=== PATIENT | male | born 1940 | race Caucasian/White ===

== ENCOUNTER 2018-10-06 07:30 | Observation (INO) ==
--- NOTE | 2018-10-06 08:55 | Diag Imaging Result Doc PS360 ---
EXAM: CHEST-PORTABLE HISTORY: fall TECHNIQUE: Portable chest single view COMPARISON: 09/15/2018 FINDINGS: Poor inspiratory effort. No pneumothorax. No lung contusion. The left hemidiaphragm is elevated. No cardiomegaly. No consolidation. Questionable tiny effusions. No change in the left-sided portacatheter. Old injury to the right clavicle. IMPRESSION: No injury identified. Electronically signed by Raffy Perez 10/06/2018 8:53 AM
--- NOTE | 2018-10-06 08:57 | Diag Imaging Result Doc PS360 ---
EXAM: HIP 1 VIEW RIGHT 10/06/2018 HISTORY: fall TECHNIQUE: Right hip one view COMMENT: The joint spaces well-preserved. There is no evidence of fracture dislocation or periosteal reaction. IMPRESSION: No evidence of acute bony disease. Electronically signed by Femi Crane 10/06/2018 8:54 AM
[2018-10-06] MEDS ORDERED: MORPHINE IV SCH (09:00)
[2018-10-06] MEDS: DILAUDID IV SCH ×6 (09:18→17:26)
[2018-10-06] MEDS: D5 1/2 NS 1,000 ML IV SCH (09:20)
--- NOTE | 2018-10-06 09:40 | Diag Imaging Result Doc PS360 ---
EXAM: XRAY PELVIS W/HIP 2-3VW RT HISTORY: fall with R hip pain TECHNIQUE: Pelvis and right hip, three views COMPARISON: None. FINDINGS: No fracture. No dislocation. No significant joint space narrowing. There are sutures, surgical clips, and coils overlying the pelvis. Severe degenerative changes in the lower lumbar spine. No widening of the pubic symphysis. IMPRESSION: No acute bony injury. Electronically signed by Raffy Perez 10/06/2018 9:38 AM
[2018-10-06 09:44] LABS: BASO# 0.04 X1000 (0.0-0.2); BASO% 0.5 % (0.0-0.8); EOS# 0.24 X1000 (0.0-0.7); HEMOGLOBIN 12.4 g/dL (14.0-18.0); IMM GRAN# 0.08 X1000 (0.0-0.04); LYMPH# 1.48 X1000 (1.2-3.4); LYMPH% 18.7 % (20.5-51.1); MCHC 31.8 g/dL (33-37); MCV 100.5 FL (81-99); MONO# 0.58 X1000 (0.11-0.59); MONO% 7.3 % (1.7-9.3); MPV 10.9 FL (7.4-10.4); NEUT% 69.5 % (42.2-75.2); PLT 139 X1000 (130-400); RBC 3.88 XMIL (4.7-6.1); WBC 7.92 X1000 (4.8-10.8)
[2018-10-06 09:47] LABS: INR 1.88
[2018-10-06 09:48] LABS: PTT 37.1 Seconds (22.3-41.8)
[2018-10-06 10:01] LABS: ALB/GLOB RATIO 1.3; ALBUMIN 3.4 g/dL (3.5-5.0); CALCIUM 9.2 mg/dL (8.8-10.2); CREATININE 1.5 mg/dL (0.7-1.2); POTASSIUM 3.8 mmol/L (3.5-5.1); TOTAL BILIRUBIN 0.75 mg/dL (0.20-1.00); TOTAL PROTEIN 6.1 g/dL (6.3-8.3)
--- NOTE | 2018-10-06 11:34 | EKG Report ---
Test Performed on : 10/06/2018 09:08:53 AM Test Reason : fall Blood Pressure : / mmHG Vent. Rate : 061 BPM Atrial Rate : 061 BPM P-R Int : 150 ms QRS Dur : 080 ms QT Int : 440 ms P-R-T Axes : 104 034 030 degrees QTc Int : 442 ms Sinus rhythm. with occasional premature ventricular complexes. and premature atrial complexes. Otherwise normal ECG When compared with ECG of 12-FEB-2018 14:01, premature ventricular complexes. are now present premature atrial complexes. are now present T wave inversion no longer evident in Inferior leads T wave inversion no longer evident in Anterolateral leads QT has lengthened Unconfirmed Result
--- NOTE | 2018-10-06 16:10 | Diag Imaging Result Doc PS360 ---
EXAM: CT PELVIS W/O CONTRAST 10/06/2018 HISTORY: Fall, right hip pain, rule out hematoma TECHNIQUE: This exam was performed using automated exposure control, adjustment of mA or kV according to patient size, and/or use of iterative reconstruction technique. COMMENT: There are fairly severe degenerative disc and facet changes at the L3-4 L4-5 and L5-S1 levels. There is scoliosis with convexity to the left. 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 These findings were also present on 10/27/2017. There is a anastomosis in the distal sigmoid colon. There is an apparent associated fecalith. There is some degenerative change in the symphysis pubis. There is no evidence of fracture or dislocation. There is minimal stranding in the subcutaneous fat over both hips. No significant fluid collection is demonstrated. IMPRESSION: No evidence of acute bony abnormality or hematoma. Electronically signed by Femi Crane 10/06/2018 4:08 PM
--- NOTE | 2018-10-06 16:38 | CARDIOLOGY CONSULTATION ---
DATE: 10/06/2018 HISTORY OF PRESENT ILLNESS: Cardiology was consulted. The patient fell at home. Has extensive cardiac history. An 78-year-old, gentleman, was at [employer] when he tripped and fell and after that he could not walk. He came to the emergency room. X-ray of his hip was unremarkable. He has been on anticoagulation therapy. The concern is whether there is any soft tissue bleeding as well. He did not have any palpitations. He was recently seen in our office. Otherwise symptoms had not changed. There is no dizziness. There is no syncope. Denies chest pain. REVIEW OF SYSTEM: GI: There is no history of nausea, vomiting, diarrhea. There is no history of hematemesis or melena. Central nervous system: No focal weakness to suggest a CVA, TIA. Genitourinary: There is no dysuria or hematuria. PAST MEDICAL HISTORY: 1. PTCA in 11/2010. The patient has had multiple cardiac catheterizations. Last cardiac catheterization in 2012, left main irregular, LAD mild disease diagonal proximal 95% stenosis treated with balloon angioplasty, circumflex 30%-40%, OM1 30%to 40%, OM1 100%, RCA occluded at ostium. 2. 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 3. He underwent ablation on 08/14/2011 of all 4 pulmonary veins and had cardioversions before that as well. 4. Anticoagulation therapy. 5. Pulmonary disease. 6. Hypertension. 7. Hyperlipidemia. 8. Melanoma. 9. History of DVT. 10. Erectile dysfunction. HOME MEDICATIONS: 1. Allopurinol 100 mg a day. 2. Nabumetone. 3. Protonix 40. 4. Potassium supplements. 5. Prednisone 10. 6. Xarelto 15. 7. Isosorbide dinitrate 30. 8. Sotalol 120 b.i.d. 11. Lasix 20. ALLERGIES: 1. Ritalin. 2. Aleve. 3. Lortab. PHYSICAL EXAMINATION: Vital Signs: Blood pressure was 134/74. Cardiovascular: Normal jugular venous pressure. First and second heart sounds were heard. There was no S3 gallop. Respiratory: Normal air entry. There is no crepitations or rhonchi. Abdomen: Soft, nontender. There was no guarding or rigidity. Bowel sounds were heard. Central nervous system: Alert and oriented, was moving all 4 extremities. Extremities: Examination of his hip did not reveal any obvious large hematoma. LABORATORY DATA: WBC 7.92, hemoglobin 12.4, hematocrit 39, platelet count of 139,000. Chemistry: Sodium 144, potassium 3.8, BUN 25, creatinine 1.5. X-rays of his hip and pelvis revealed no bony injury. Chest x-ray revealed no major abnormality, poor inspiratory effort. ASSESSMENT AND PLAN: 1. Mr. Ignacio Fontenot is an 78-year-old gentleman who fell and sustained an injury to his hip, right side. There was no bony injury noted on chest x-ray. However he is anticoagulated. Given this, we will get a CT scan without contrast to make sure there is no hematoma in the soft tissue area. 2. He has history of coronary artery disease, angioplasty in the past. 3. Atrial fibrillation with ablation in 2012. He also has history of deep venous thrombosis. He is on sotalol and Xarelto. His EKG revealed normal sinus rhythm. There was no atrial fibrillation. Occasional atrial contraction beats were noted. RECOMMENDATIONS: 1. Will continue all of his medications if there is no soft tissue injury. He has had history of deep venous thrombosis. We will continue with the Xarelto as well. 2. History of atrial fibrillation, currently in sinus rhythm. Has undergone ablation. We will continue with his sotalol. I have not made any other changes to his medications. Thank for the consult. cc: MD Ceasar Guevara MD MTDD
[2018-10-06 17:09] LABS: URINE SOURCE CLEAN CATCH
[2018-10-06 17:12] LABS: BILIRUBIN URINE NEGATIVE (NEGATIVE); BLOOD URINE NEGATIVE (NEGATIVE); COLOR YELLOW; GLUCOSE URINE NEGATIVE (NEGATIVE); KETONE URINE NEGATIVE (NEGATIVE); LEUKOCYTES URINE NEGATIVE (NEGATIVE); NITRITE URINE NEGATIVE (NEGATIVE); PH URINE 6.5; PROTEIN URINE NEGATIVE (NEGATIVE); SP GRAVITY URINE 1.003; TURBIDITY URINE CLEAR (CLEAR); UR EPITHELIAL CELLS <10 /HPF (<10); URINE BACTERIA NEGATIVE /HPF; URINE RBC <10 /HPF (<10); URINE WBC <10 /HPF (<10); UROBILINOGEN URINE NORMAL (NORMAL)
[2018-10-06] MEDS: MILK OF MAGNESIA PO SCH (17:15)
[2018-10-06] MEDS: BETAPACE PO SCH (19:43)
[2018-10-06] MEDS: RESTORIL PO SCH (19:43)
[2018-10-06] MEDS: FLOMAX PO SCH (19:44)
[2018-10-06] MEDS: PATIENT'S OWN MED PO SCH (19:44)
[2018-10-06] MEDS ORDERED: HALCION PO SCH (21:00)
[2018-10-07] MEDS: BETAPACE PO SCH ×3 (03:30→21:57)
[2018-10-07] MEDS: FLOMAX PO SCH ×2 (03:30→21:58)
[2018-10-07] MEDS: PATIENT'S OWN MED PO SCH ×3 (03:30→22:00)
[2018-10-07] MEDS: RESTORIL PO SCH ×2 (03:31→21:58)
[2018-10-07] MEDS: PROTONIX PO SCH (06:17)
[2018-10-07] MEDS: D5 1/2 NS 1,000 ML IV SCH (06:18)
[2018-10-07 07:17] LABS: CALCIUM 8.5 mg/dL (8.8-10.2); CREATININE 1.4 mg/dL (0.7-1.2); MAGNESIUM 2.4 mg/dL (1.5-2.7); POTASSIUM 3.7 mmol/L (3.5-5.1)
[2018-10-07] MEDS ORDERED: PATIENT'S OWN MED PO SCH ×2 (09:00→21:00)
[2018-10-07] MEDS ORDERED: XARELTO PO SCH (09:00)
[2018-10-07] MEDS: MILK OF MAGNESIA PO SCH (09:40)
[2018-10-07] MEDS: DILAUDID IV PRN ×3 (09:40→22:17)
[2018-10-07] MEDS: RELAFEN PO SCH ×2 (09:41→21:57)
[2018-10-07] MEDS: IMDUR PO SCH (09:42)
[2018-10-07] MEDS: ZYLOPRIM PO SCH (09:42)
[2018-10-07] MEDS: VITAMIN B-12 SL SCH (09:42)
[2018-10-07] MEDS: KLOR-CON PO SCH (09:42)
[2018-10-07] MEDS: PREDNISONE PO SCH (09:43)
[2018-10-07] MEDS: LASIX PO SCH (09:44)
[2018-10-07] MEDS ORDERED: CITRATE OF MAGNESIA PO ONE (16:01)
[2018-10-08] MEDS: DILAUDID IV PRN (04:09)
[2018-10-08] MEDS: PROTONIX PO SCH (06:22)
[2018-10-08 07:32] VITALS: BP 135/75
[2018-10-08] MEDS: IMDUR PO SCH (09:04)
[2018-10-08] MEDS: VITAMIN B-12 SL SCH ×2 (09:04→09:13)
[2018-10-08] MEDS: LASIX PO SCH (09:05)
[2018-10-08] MEDS: RELAFEN PO SCH (09:05)
[2018-10-08] MEDS: KLOR-CON PO SCH (09:07)
[2018-10-08] MEDS: BETAPACE PO SCH (09:07)
[2018-10-08] MEDS: PREDNISONE PO SCH (09:08)
[2018-10-08] MEDS: ZYLOPRIM PO SCH (09:08)
[2018-10-08] MEDS: PATIENT'S OWN MED PO SCH (09:09)
--- NOTE | 2018-10-08 11:00 | CONSULTATION ---
DATE OF CONSULTATION: 10/08/2018 CHIEF COMPLAINT: Right hip pain. HISTORY OF PRESENT ILLNESS: Ignacio Fontenot is an 78-year-old male who underwent a fall this weekend while he was [place]. He missed a step coming out that he had forgotten was there and fell landing on his right hip and knee. Since that time, he has had pain with any weightbearing of his hip. He was admitted to the hospital and workup was subsequently negative. I was asked to see him in orthopedic consultation. PAST MEDICAL HISTORY: Includes significant cardiac history including catheterizations. He is on anticoagulation. He has pulmonary disease, hypertension, and high cholesterol. He has had a history of melanoma cancer treated currently with chemotherapy. History of DVT and erectile dysfunction. MEDICATIONS: His home medications include allopurinol, nabumetone, Protonix, potassium, prednisone, Xarelto, isosorbide dinitrate, sotalol and Lasix. ALLERGIES: Include Ritalin, Aleve and Lortab. REVIEW OF SYSTEMS: All systems were reviewed. He denies any complaints other than his hip pain. All other systems were negative and normal. PHYSICAL EXAMINATION: A well-developed and well-nourished male. He is cooperative with exam. He has no pain when sitting or with range of motion of his hip really, but he does have some pain with internal rotation of his hip, and most of his pain is just with weightbearing. He also has pain with resisted flexion of his hip. His leg is otherwise neurovascularly intact. He does have some bruising over his greater trochanter that is mild, but he is not really tender there. IMAGING: X-rays and CT of his pelvis show no abnormality. He does have some degenerative disk disease in his lumbar spine. ASSESSMENT: Right hip pain with inability to ambulate. PLAN: His symptoms are certainly more pronounced than his studies would suggest. He certainly seems reasonable and astute. He is definitely having pain and inability to ambulate or stand. I am concerned that he could have an occult fracture that we are just not seeing on x-ray. It is certainly possible that this is just a muscle strain of his iliopsoas, and should get better on its own, but to be certain I would not want to send him home with impending stress fracture of his hip. Therefore, we are going to get an MRI of his hip prior to allowing him to be discharged. I have discussed this with him and his , and they are certainly agreeable. cc: MD Ceasar Gardner MD [facility]
--- NOTE | 2018-10-08 12:12 | Diag Imaging Result Doc PS360 ---
EXAM: MRI LOWER EXT JT W/O CON-RIGHT INDICATION: Right Hip Pain and inability to ambulate TECHNIQUE: COMPARISON: CT of the pelvis dated 10/06/2018. No prior MRI of the hip is available for comparison. FINDINGS: There is a low signal linear cortical defect at the superior aspect of the femoral neck and there is surrounding increased signal on fluid sensitive sequences indicating edema. This is consistent with a small nondisplaced fracture of the femoral neck. It does not traverse the entire craniocaudal with of the femoral neck. Edema as seen extending into the intertrochanteric region. However, there is no obvious extension of the actual fracture into the intertrochanteric hip. Note that this fracture is largely occult on the recent pelvic CT. In retrospect, it was probably present as an extremely subtle cortical defect that can be seen on the coronal reformatted images on the previous CT (image 67, series 602). Otherwise, there is a superior labral tear and there is chondromalacia with a small subchondral cyst at the acetabular roof. These findings are likely chronic. The tendinous and ligamentous structures of the hip appear to be intact. There is subcutaneous soft tissue edema around the right hip. IMPRESSION: 1.Acute nondisplaced fracture involving the right femoral neck. Please see the above discussion. 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 Electronically signed by Jaun Pang 10/08/2018 12:10 PM
== END 2018-10-08 12:03 | disposition home or self-care (01) ==
LOC: EDIPHOLD 07:30 → ED 07:30 → 4N 13:19
PROVIDERS: ADMIT Surgery; ATTEND Surgery
CPT/HCPCS: 71010; 71045; 72192; 73500; 73501; 73502; 73721; 80048; 80053; 81001; 83735; 85025; 85610; 85730; 93005; 96365; 96366; 96375; 99285; A9270; J1170; J7506; J7512

== ENCOUNTER 2018-10-08 13:14 | Inpatient (IN) ==
[2018-10-08] MEDS ORDERED: D5 1/2 NS 1,000 ML IV SCH (15:30)
[2018-10-08 16:25] LABS: BASO# 0.02 X1000 (0.0-0.2); BASO% 0.3 % (0.0-0.8); EOS# 0.11 X1000 (0.0-0.7); EOS% 1.5 % (0.0-10.0); HEMATOCRIT 37.8 % (42.0-52.0); HEMOGLOBIN 11.9 g/dL (14.0-18.0); IMM GRAN# 0.07 X1000 (0.0-0.04); LYMPH# 1.27 X1000 (1.2-3.4); LYMPH% 17.5 % (20.5-51.1); MCH 32.1 PG (27-31); MCHC 31.5 g/dL (33-37); MCV 101.9 FL (81-99); MONO# 0.32 X1000 (0.11-0.59); MONO% 4.4 % (1.7-9.3); MPV 10.5 FL (7.4-10.4); NEUT# 5.47 X1000 (1.4-6.5); NEUT% 75.3 % (42.2-75.2); PLT 132 X1000 (130-400); RBC 3.71 XMIL (4.7-6.1); WBC 7.26 X1000 (4.8-10.8)
[2018-10-08] MEDS ORDERED: KEFZOL 1 GM/D5W 1 GM/50 ML IVPB IV ONE (17:04)
[2018-10-08 17:09] LABS: INR 0.97; PROTIME 13.7 Seconds (11.0-16.0)
[2018-10-08 17:10] LABS: PTT 25.5 Seconds (22.3-41.8)
[2018-10-08 17:11] LABS: ALB/GLOB RATIO 1.2; ALBUMIN 3.4 g/dL (3.5-5.0); CALCIUM 8.4 mg/dL (8.8-10.2); CREATININE 1.5 mg/dL (0.7-1.2); TOTAL BILIRUBIN 0.57 mg/dL (0.20-1.00); TOTAL PROTEIN 6.3 g/dL (6.3-8.3)
--- NOTE | 2018-10-08 17:45 | HISTORY AND PHYSICAL ---
CHIEF COMPLAINT: Right hip pain. HISTORY OF PRESENT ILLNESS: Mr. Fontenot is an 78-year-old male who is complaining of right hip pain after falling this weekend. He was admitted to the hospital where multiple imaging was done including a CT of his abdomen and pelvis. It was not until a lower extremity MRI revealed a nondisplaced fracture of the right femoral neck, he was discharged and then readmitted for further evaluation and treatment. PAST MEDICAL HISTORY: 1. Hypertension. 2. Hyperlipidemia. 3. Melanoma. 4. History of DVT. 5. Erectile dysfunction. 6. Pulmonary disease. 7. Atrial fibrillation. MEDICATIONS: See the medication list. ALLERGIES: Ritalin, Aleve, and Lortab. REVIEW OF SYSTEMS: Positive for right hip pain. All others negative. PHYSICAL EXAMINATION: GENERAL: This is a well-developed, well-nourished male. He is alert, oriented, and cooperative with the examination. He is in no acute distress. VITAL SIGNS: Stable. He is afebrile. HEENT: Head is normocephalic, atraumatic. NECK: Supple. RESPIRATORY: His breathing is nonlabored. ABDOMEN: Nondistended. NEUROLOGIC: Sensation of his right lower extremity is intact. MUSCULOSKELETAL: He has pain with range of motion of his right hip. IMAGING: An MRI of his right hip reveals a right femoral neck fracture. ASSESSMENT: Right hip femoral neck fracture. PLAN: Right intertrochanteric fixation nail placement. We will keep him NPO at midnight to proceed with a right trochanteric fixation nail placement tomorrow with Dr. Blevins. We will continue to hold his Xarelto. His last dose was [address] Blevins discussed with the patient the risks and benefits of surgery including risk of anesthesia, , bleeding, infection, damage to tendons, nerves, ligaments, and other imponderables were discussed with the patient and the patient wishes to proceed with operative management at this time. Dictated by SHANNAN Hamlin for Gordon Blevins MD cc: SHANNAN Hamlin MD
--- NOTE | 2018-10-08 18:28 | Diag Imaging Result Doc PS360 ---
EXAM: KNEE 3 VIEWS RIGHT INDICATION: Right knee pain TECHNIQUE: 3 views COMPARISON: None. FINDINGS: There is tricompartmental mild to moderate degenerative arthropathy with small marginal osteophytes. There is loss of joint height at the medial compartment. There is no discrete fracture, dislocation, or significant intrinsic osseous lesion, otherwise. There is soft tissue edema around the knee and lower leg. IMPRESSION: Soft tissue edema and degenerative changes. No evidence of acute osseous abnormality. Electronically signed by Jaun Pang 10/08/2018 6:26 PM
[2018-10-08] MEDS: RELAFEN PO SCH (20:39)
[2018-10-08] MEDS: PATIENT'S OWN MED PO SCH (20:40)
[2018-10-08] MEDS: BETAPACE PO SCH (20:40)
[2018-10-09] MEDS: BETAPACE PO SCH ×3 (06:23→20:47)
[2018-10-09] MEDS: KLOR-CON PO SCH ×2 (06:24→17:18)
--- NOTE | 2018-10-09 08:14 | PROGRESS NOTE ---
DATE: 10/09/2018 SUBJECTIVE: Ignacio Fontenot is an 78-year-old male with a right femoral neck fracture, nondisplaced after a fall. He has no new complaints. OBJECTIVE: He is a well-developed, well-nourished male. He is alert, oriented, and cooperative with exam. His vital signs are stable. He is afebrile. His leg is neurovascularly intact. IMAGING: X-rays of his knee show arthritis and swelling, but no acute bony abnormality. ASSESSMENT: Right hip femoral neck fracture. PLAN: We will plan on performing a trochanteric fixation nail placement today. I have discussed this with him at length yesterday. I have answered any questions he has again today. We will plan on proceeding with that surgery today at noon. cc: Gordon Blevins MD
[2018-10-09] MEDS ORDERED: KEFZOL 2 GM/D5W 2 GM/50 ML IVPB ONE (11:10)
[2018-10-09] MEDS ORDERED: DIPRIVAN 1% ONE (11:46)
[2018-10-09] MEDS ORDERED: XYLOCAINE-MPF 2% ONE (11:47)
[2018-10-09] MEDS ORDERED: EPHEDRINE ONE (12:34)
[2018-10-09] MEDS ORDERED: ROBINUL ONE (12:34)
[2018-10-09] MEDS ORDERED: NEO-SYNEPHRINE ONE (12:34)
[2018-10-09] MEDS ORDERED: ZOFRAN ONE (12:41)
[2018-10-09] MEDS ORDERED: OFIRMEV 1000 MG/ISOTONIC SOLN 1,000 MG/100 ML BOTTLE ONE (12:41)
[2018-10-09] MEDS ORDERED: DECADRON ONE (12:41)
[2018-10-09] MEDS ORDERED: FENTANYL ONE (12:47)
[2018-10-09 13:11] LABS: URINE SOURCE CATH
[2018-10-09 13:19] LABS: BILIRUBIN URINE NEGATIVE (NEGATIVE); BLOOD URINE SMALL (NEGATIVE); COLOR YELLOW; GLUCOSE URINE NEGATIVE (NEGATIVE); KETONE URINE NEGATIVE (NEGATIVE); LEUKOCYTES URINE NEGATIVE (NEGATIVE); NITRITE URINE NEGATIVE (NEGATIVE); PROTEIN URINE NEGATIVE (NEGATIVE); SP GRAVITY URINE 1.007; TURBIDITY URINE HAZY (CLEAR); UR EPITHELIAL CELLS <10 /HPF (<10); URINE BACTERIA NEGATIVE /HPF; URINE WBC <10 /HPF (<10); UROBILINOGEN URINE NORMAL (NORMAL)
[2018-10-09] MEDS ORDERED: PERCOCET-5 ONE (13:44)
[2018-10-09] MEDS ORDERED: ZOFRAN IV PRN (14:06)
[2018-10-09] MEDS ORDERED: HALDOL IV PRN (14:06)
[2018-10-09] MEDS ORDERED: OXY IR PO PRN (14:06)
[2018-10-09] MEDS: DILAUDID IV PRN (14:13)
--- NOTE | 2018-10-09 14:13 | PROGRESS NOTE ---
DATE: 10/09/2018 SUBJECTIVE: The patient was readmitted to the hospital yesterday when an occult hip fracture was found via MRI yesterday. He was admitted by Dr. Blevins. I was consulted for medical management. I saw the patient preoperatively today. He was in good spirits and completely lucid. He had no complaints and no need expressed OBJECTIVE: Vital signs: 97.9 degrees, pulse rate 55, respiratory rate 24, blood pressure 172/67. On physical exam, the patient is alert, oriented, conversive and appropriate. Lungs are clear. ASSESSMENT AND PLAN: The patient is scheduled for orthopedic procedure to stabilize his fracture today. The patient is unsure whether he will want to go to rehabilitation or to go home. I will leave that discussion more to Dr. Blevins whether he thinks the patient will be able to return home or not. In regard to the patient's medications, we will try and reinstitute his home medications as quickly as possible. I have held a few this morning, including Lasix and Relafen, since he is going to surgery, but we will reinstitute those tomorrow. We will continue to monitor hydration and blood counts and make adjustments as necessary. cc: MD Gordon Silverman MD
--- NOTE | 2018-10-09 14:57 | OPERATIVE NOTE ---
PROCEDURE DATE: 10/09/2018 PREOPERATIVE DIAGNOSIS: Right basicervical femoral neck fracture. POSTOPERATIVE DIAGNOSIS: Right basicervical femoral neck fracture. PROCEDURE PERFORMED: Right long trochanteric fixation nail placement. ANESTHESIA: General. SURGEON: Gordon Blevins MD. TRANSMISSION MAINTENANCE SUPERVISOR: Leisa Fisher PA-C. COMPLICATIONS: None. BLOOD LOSS: Minimal. DESCRIPTION OF PROCEDURE: The patient was brought to the operative suite and placed in supine position. After successful administration of general anesthesia, the patient placed on the OSI table in the usual position for a right hip. The right hip was then prepped and draped in usual sterile fashion as well as the leg down to past the knee. A longitudinal incision was made proximal to the tip of the greater trochanter. Dissected sharply through the skin. A guide pin was placed in the center of the femoral canal on AP and lateral images. It was reamed to 13 mm after placing the ball-tipped guidewire and then measured to 420 mm. A 420 mm nail was then driven into place and through a stab incision laterally using the proximal guide, a guide pin was placed in the center of the femoral neck and head, and then was measured to 95 mm. It was reamed and driven into place and then locked up proximally and then released to allow for compression and the proximal guide was removed as well as the guide pin, and traction was released. All the reamings were sent to pathology for analysis since the patient is a cancer patient. Using the perfect circles technique through stab incisions, the distal locking screws were drilled and measured at 48 and 52 mm and then driven into place. Excellent placement of the hardware and reduction of the fracture was obtained on AP and lateral images. The wounds were copiously irrigated. Skin edge were approximated with 2-0 Vicryl. Skin was closed with skin jaime and a sterile dressing was applied. The patient tolerated the procedure well without complications. At the end of the procedure, all counts correct x2. The patient was transferred to the recovery room in stable condition. cc: Gordon Blevins MD [facility]
[2018-10-09] MEDS: NS 1,000 ML IV SCH (16:12)
[2018-10-09] MEDS: ISORDIL PO SCH (17:17)
[2018-10-09] MEDS: PREDNISONE PO SCH (17:18)
[2018-10-09] MEDS: ZYLOPRIM PO SCH (17:19)
[2018-10-09] MEDS: VITAMIN B-12 SL SCH (17:19)
[2018-10-09] MEDS: PATIENT'S OWN MED PO SCH ×3 (17:20→20:48)
[2018-10-09] MEDS: TYLENOL PO SCH (20:47)
[2018-10-09] MEDS: COLACE PO SCH (20:47)
[2018-10-10] MEDS: TYLENOL PO SCH ×5 (00:17→23:41)
[2018-10-10] MEDS: PROTONIX PO SCH ×2 (06:32→06:33)
[2018-10-10 06:46] LABS: HEMATOCRIT 31.5 % (42.0-52.0); HEMOGLOBIN 9.7 g/dL (14.0-18.0)
[2018-10-10 06:55] LABS: CALCIUM 8.1 mg/dL (8.8-10.2); CREATININE 1.2 mg/dL (0.7-1.2); POTASSIUM 4.4 mmol/L (3.5-5.1)
[2018-10-10] MEDS: KLOR-CON PO SCH (09:47)
[2018-10-10] MEDS: RELAFEN PO SCH ×2 (09:47→20:12)
[2018-10-10] MEDS: BETAPACE PO SCH ×2 (09:49→20:14)
[2018-10-10] MEDS: ZYLOPRIM PO SCH (09:49)
[2018-10-10] MEDS: ISORDIL PO SCH (09:51)
[2018-10-10] MEDS: FERROUS SULFATE PO SCH (09:51)
[2018-10-10] MEDS: LASIX PO SCH (09:51)
[2018-10-10] MEDS: PREDNISONE PO SCH (09:52)
[2018-10-10] MEDS: XARELTO PO SCH (09:52)
[2018-10-10] MEDS: VITAMIN B-12 SL SCH (10:00)
[2018-10-10] MEDS: PATIENT'S OWN MED PO SCH ×3 (10:20→20:29)
--- NOTE | 2018-10-10 11:16 | PROGRESS NOTE ---
DATE: 10/10/2018 SUBJECTIVE: The patient states that he is struggling because he is comfortable when in a semi recumbent position and motionless, but as soon as he tries to move, he says the pain is pretty bad. Despite this, he does not want to utilize very much in the way of pain medication. Physical therapy was about to try and get him moving as we spoke this morning. He is in good spirits. He still has a Gutierrez catheter in. OBJECTIVE: Vital Signs: 97.9, 63, 24, 124/64, 97% saturated on room air. General: The patient is alert, oriented, conversive and appropriate. Lungs: Clear. Cardiovascular: Regular. LABORATORY: Hemoglobin is 9.7, down from 11.9. Serum electrolytes are normal. ASSESSMENT AND PLAN: 1. The patient had a long trochanteric fixation nail placement per Dr. Blevins. He is in a bit of pain, but is eager to work with physical therapy and try to regain his feet. He still has a Gutierrez catheter in. 2. The patient is slightly to moderately anemic postoperatively. We will have to continue to watch this. He is on blood thinner. We will transfuse as appropriate, but he is pretty far outside of that range at the present time. 3. The patient's cardiovascular concerns are stable at present. He is still on his sotalol. He is to restart Lasix today. cc: MD Gordon Silverman MD
[2018-10-10] MEDS: DILAUDID IV PRN (11:46)
[2018-10-10] MEDS: MILK OF MAGNESIA PO PRN ×2 (12:07→12:11)
[2018-10-10] MEDS: NS 1,000 ML IV SCH ×2 (12:48→17:32)
--- NOTE | 2018-10-10 17:25 | PROGRESS NOTE ---
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 He complains of continued pain in his leg with ambulation, but otherwise is doing well. OBJECTIVE: General: He is a well-developed, well-nourished male. He is alert, oriented, and cooperative exam. His dressings are clean, dry, intact. There is some mild bloody drainage from the most superior wound. His hemoglobin is 9.7. His hematocrit is 31.5. Vital signs: Stable. He is afebrile. Lower extremity: His leg is neurovascularly intact. His calf is soft. There is no sign of infection or deep venous thrombosis. ASSESSMENT: Stable postoperative day 1 visit from a right trochanteric fixation nail placement. PLAN: We will continue working with physical therapy. He was able to walk 50 feet today. He will likely go to rehab on Saturday. We will change his dressing tomorrow. cc: Gordon Blevins MD
[2018-10-10] MEDS: COLACE PO SCH (20:13)
[2018-10-10] MEDS: AMBIEN PO PRN (20:24)
[2018-10-11] MEDS: PROTONIX PO SCH ×2 (05:37→06:09)
[2018-10-11] MEDS: TYLENOL PO SCH ×3 (05:44→23:44)
[2018-10-11] MEDS: BETAPACE PO SCH ×2 (05:47→20:53)
[2018-10-11] MEDS: NS 1,000 ML IV SCH (05:48)
[2018-10-11] MEDS: PATIENT'S OWN MED PO SCH ×3 (05:48→20:54)
[2018-10-11 06:41] LABS: HEMATOCRIT 28.7 % (42.0-52.0)
[2018-10-11] MEDS: VITAMIN B-12 SL SCH (08:50)
[2018-10-11] MEDS: RELAFEN PO SCH ×2 (08:51→20:54)
[2018-10-11] MEDS: FERROUS SULFATE PO SCH (08:52)
[2018-10-11] MEDS: XARELTO PO SCH (08:52)
[2018-10-11] MEDS: ZYLOPRIM PO SCH (08:52)
[2018-10-11] MEDS: PREDNISONE PO SCH (08:57)
[2018-10-11] MEDS: LASIX PO SCH (08:58)
[2018-10-11] MEDS: KLOR-CON PO SCH (08:58)
[2018-10-11] MEDS: ISORDIL PO SCH (08:59)
--- NOTE | 2018-10-11 10:31 | PROGRESS NOTE ---
DATE: 10/11/2018 SUBJECTIVE: Ignacio Fontenot is an 78-year-old male, postop day 2 from a right TFN for his nondisplaced femoral neck basicervical fracture. He has no complaints. He does state, however, that his leg continues to hurt him if he bears any weight. OBJECTIVE: He is a well developed, well nourished male. He is alert and cooperative with exam. His vital signs are stable. He is afebrile. His hemoglobin is 9 and his hematocrit is 28.7. He walked about 50 feet yesterday with therapy. ASSESSMENT: Stable right trochanteric fixation nail.. PLAN: He will continue working with physical therapy. He will likely go to rehab the first part of the week. cc: Gordon Blevins MD
[2018-10-11] MEDS: DILAUDID IV PRN (12:53)
[2018-10-11] MEDS: COLACE PO SCH (20:53)
[2018-10-11] MEDS: AMBIEN PO PRN (20:53)
[2018-10-12] MEDS: PATIENT'S OWN MED PO SCH ×3 (05:28→20:45)
[2018-10-12] MEDS: PROTONIX PO SCH ×2 (05:28→06:01)
[2018-10-12] MEDS: TYLENOL PO SCH ×2 (05:28→16:23)
[2018-10-12] MEDS: BETAPACE PO SCH ×2 (05:28→20:45)
[2018-10-12 06:34] LABS: HEMATOCRIT 26.8 % (42.0-52.0); HEMOGLOBIN 8.4 g/dL (14.0-18.0)
[2018-10-12] MEDS: MILK OF MAGNESIA PO PRN (10:53)
[2018-10-12] MEDS: VITAMIN B-12 SL SCH (10:54)
[2018-10-12] MEDS: RELAFEN PO SCH ×2 (10:54→20:37)
[2018-10-12] MEDS: KLOR-CON PO SCH (10:55)
[2018-10-12] MEDS: ZYLOPRIM PO SCH (10:56)
[2018-10-12] MEDS: XARELTO PO SCH (10:57)
[2018-10-12] MEDS: LASIX PO SCH (10:57)
[2018-10-12] MEDS: ISORDIL PO SCH (10:58)
[2018-10-12] MEDS: FERROUS SULFATE PO SCH (10:58)
[2018-10-12] MEDS: PREDNISONE PO SCH (10:58)
[2018-10-12] MEDS: FOLIC ACID PO SCH (11:05)
--- NOTE | 2018-10-12 14:03 | ORTHOPAEDICS PROGRESS NOTE ---
DATE: 10/12/2018 SUBJECTIVE: Mr. Davis is seen status post TFN fixation of the hip. OBJECTIVE: Presently, he is afebrile with stable vital signs. The hematocrit is 26.8 today. However, he is asymptomatic. Vital signs are stable. He is continuing to mobilize. We will consider discharge home tomorrow. cc: MD Gordon Henry MD
[2018-10-12] MEDS: DILAUDID IV PRN (18:27)
[2018-10-12] MEDS: COLACE PO SCH (20:37)
[2018-10-12] MEDS: AMBIEN PO PRN (21:00)
[2018-10-13] MEDS: TYLENOL PO SCH ×2 (00:38→05:01)
[2018-10-13] MEDS: PATIENT'S OWN MED PO SCH (05:47)
[2018-10-13] MEDS: BETAPACE PO SCH (05:47)
[2018-10-13] MEDS: PROTONIX PO SCH ×2 (05:47→06:45)
[2018-10-13 07:34] VITALS: BP 140/73
[2018-10-13] MEDS: KLOR-CON PO SCH (08:38)
[2018-10-13] MEDS: ISORDIL PO SCH (08:38)
[2018-10-13] MEDS: FOLIC ACID PO SCH (08:39)
[2018-10-13] MEDS: XARELTO PO SCH (08:39)
[2018-10-13] MEDS: PREDNISONE PO SCH (08:40)
[2018-10-13] MEDS: LASIX PO SCH (08:41)
[2018-10-13] MEDS: FERROUS SULFATE PO SCH (08:41)
[2018-10-13] MEDS: VITAMIN B-12 SL SCH (08:41)
[2018-10-13] MEDS: ZYLOPRIM PO SCH (08:45)
--- NOTE | 2018-10-13 09:14 | Diag Imaging Result Doc PS360 ---
EXAM: CHEST-PORTABLE INDICATION: rehab placement TECHNIQUE: One view COMPARISON: 10/06/2018 FINDINGS: Left chest port is in stable position. There is stable elevation of the left hemidiaphragm. There is stable mild blunting of the costophrenic angle suggesting chronic pleural scarring or trace effusions. Interstitial thickening suggesting likely representing fibrosis on the right is stable. No new consolidation is identified. Cardiac silhouette is stable. IMPRESSION: Stable chest. Electronically signed by aJun Pang 10/13/2018 9:12 AM
--- NOTE | 2018-10-13 09:17 | PROGRESS NOTE ---
DATE: 10/13/2018 SUBJECTIVE: The patient has no complaints. We discussed his dwindling hematocrit in the face of chronic blood thinner use. He is having less pain but still has considerable discomfort when bearing weight on his feet. He is moving in the bed better and overall is improving. OBJECTIVE: Vital Signs: 98.3, 60, 16, 140/73, 91% saturated on room air Physical exam lungs are clear. Cardiovascular is regular. Neuropsych the patient is alert, oriented, conversive and appropriate. He is has normal mood and affect. LABORATORY DATA: Laboratory hemoglobin has fallen to 8.4 with hematocrit of 26. ASSESSMENT/PLAN: 1. The patient is or recovering from his orthopedic surgery. He desires to go to [facility] and arrangements are being made towards that end. I believe he has been released from orthopedic care for that purpose, I am unsure about bed availability for him at the present time. 2. I would like to hold his Xarelto for at least 3 days and see if we can get some recovery in his hematocrit. In complains of frequent bleeding and can probably be reduced to the 10 mg dose upon return to it. We discussed the increased risk for stroke associated with lack of blood thinner, but in this case, I think with his dwindling hematocrit and the need for energy to finish rehab it would be in his best interest to hold it for about 3 days. cc: MD Gordon Silverman MD
--- NOTE | 2018-10-13 12:10 | DISCHARGE SUMMARY ---
ADMISSION DATE: 10/08/2018 DISCHARGE DATE: 10/13/2018 DISCHARGE DIAGNOSIS: Right intertrochanteric hip fracture status post right long trochanteric fixation nail placement. DISCHARGE MEDICATIONS: See discharge medication list. DISPOSITION: The patient discharged to rehab with instructions for weightbearing as tolerated. Remove jaime in 10 days. Return to see Dr. Blevins in 2 weeks. HOSPITAL COURSE: On the day of admission, patient underwent admission for a right intertrochanteric hip fracture. The following day, he underwent a right long trochanteric fixation nail placement. His postoperative course was unremarkable. At discharge, he is afebrile, tolerating a regular diet, ambulating well with physical therapy. His wound is clean, dry, intact without sign of infection. He is discharged to rehab in stable condition with instructions to follow up as described above. cc: Gordon Blevins MD
[2018-10-13] MEDS: RELAFEN PO SCH (12:28)
== END 2018-10-13 13:10 | DRG 481 ==
LOC: DIRADM 13:14 → 4N 14:05
PROVIDERS: ADMIT Orthopaedic Surgery; ATTEND Orthopaedic Surgery
CPT/HCPCS: 71010; 71045; 72192; 73500; 73501; 73502; 73562; 73721; 76000; 80048; 80053; 81001; 82607; 82746; 83735; 85014; 85018; 85025; 85610; 85730; 88305; 88311; 88313; 93005; 94761; 94799; 96365; 96366; 96374; 96375; 96376; 97110; 97116; 97162; 97530; 99285; A9270; G0378; J0131; J0690; J1100; J1170; J2370; J2405; J3010; J7030; J7506; J7512

== ENCOUNTER 2018-11-16 10:24 | Inpatient (IN) ==
[2018-11-16] MEDS ORDERED: TYLENOL PO ONE (11:16)
[2018-11-16 11:37] LABS: ALLEN TEST YES; BE 2.4 mmoll (-3.0-3.0); BLOOD TYPE ARTERIAL; HCO3-(ACT) 26.6 mmoll (20.0-26.0); O2(CT) 16.6 mL/dL (15.0-23.0); PCO2(98.6) 38 mmHg (35-45); PO2(98.6) 53 mmHg (60-100); SAMPLE BLOOD; SAO2 91.1 % (95.0-100.0); THB 13.4 g/dL (11.5-17.4); pH(98.6) 7.45 (7.35-7.45)
[2018-11-16 11:39] LABS: O2HB 88.4 % (95.0-99.0)
[2018-11-16 11:40] LABS: MODALITY ROOM AIR
[2018-11-16 12:34] LABS: URINE SOURCE CLEAN CATCH
[2018-11-16 12:43] LABS: BASO# 0.02 X1000 (0.0-0.2); BASO% 0.6 % (0.0-0.8); EOS# 0.02 X1000 (0.0-0.7); EOS% 0.6 % (0.0-10.0); HEMATOCRIT 38.2 % (42.0-52.0); HEMOGLOBIN 12.4 g/dL (14.0-18.0); IMM GRAN# 0.02 X1000 (0.0-0.04); IMM GRAN% 0.6 % (0.0-0.5); LYMPH# 0.79 X1000 (1.2-3.4); MCH 33.2 PG (27-31); MCHC 32.5 g/dL (33-37); MCV 102.1 FL (81-99); MONO# 0.34 X1000 (0.11-0.59); MONO% 9.9 % (1.7-9.3); MPV 10.4 FL (7.4-10.4); NEUT# 2.25 X1000 (1.4-6.5); NEUT% 65.3 % (42.2-75.2); PLT 106 X1000 (130-400); RBC 3.74 XMIL (4.7-6.1); RDW 14.8 % (11.5-14.5); WBC 3.44 X1000 (4.8-10.8)
[2018-11-16 12:47] LABS: BILIRUBIN URINE NEGATIVE (NEGATIVE); BLOOD URINE NEGATIVE (NEGATIVE); COLOR YELLOW; GLUCOSE URINE NEGATIVE (NEGATIVE); KETONE URINE NEGATIVE (NEGATIVE); LEUKOCYTES URINE NEGATIVE (NEGATIVE); NITRITE URINE NEGATIVE (NEGATIVE); PROTEIN URINE TRACE mg/dL (NEGATIVE); SP GRAVITY URINE 1.019; TURBIDITY URINE CLEAR (CLEAR); UROBILINOGEN URINE NORMAL (NORMAL)
[2018-11-16 12:51] LABS: UR EPITHELIAL CELLS <10 /HPF (<10); URINE BACTERIA NEGATIVE /HPF; URINE RBC <10 /HPF (<10); URINE WBC <10 /HPF (<10)
[2018-11-16 13:05] LABS: ALB/GLOB RATIO 1.5; ALBUMIN 3.5 g/dL (3.5-5.0); CALCIUM 8.7 mg/dL (8.8-10.2); CREATININE 1.3 mg/dL (0.7-1.2); TOTAL BILIRUBIN 0.81 mg/dL (0.20-1.00); TOTAL PROTEIN 5.8 g/dL (6.3-8.3)
--- NOTE | 2018-11-16 13:45 | Diag Imaging Result Doc PS360 ---
EXAM: CHEST-1 VIEW INDICATION: fever TECHNIQUE: One view COMPARISON: 10/13/2018 FINDINGS: The left chest port is in stable position. There is stable elevation of the left hemidiaphragm. Mild blunting of the costophrenic angles is stable suggesting trace effusions versus chronic pleural thickening. Interstitial thickening mainly on the right at the base suggesting likely fibrosis is approximately stable. No definite new consolidation is identified. Cardiac silhouette is stable. IMPRESSION: Stable chest. Electronically signed by Jaun Pang 11/16/2018 1:42 PM
--- NOTE | 2018-11-16 14:08 | PROVIDER DOCUMENTATION ---
This chart was entered by Masoud Snyder Scribe, acting as scribe for Agapito Patel MD. HPI-General Adult - General Chief Complaint: Shortness of Breath Stated Complaint: SOB,POSS PNEUMONIA Time Seen by Provider: 11/16/18 11:04 Source: patient Allergies/Adverse Reactions: Patient Allergies Allergy/AdvReac Type Severity Reaction Status Date / Time naproxen sodium * Allergy Severe Unknown Verified 11/16/18 12:04 [From Aleve] hydrocodone bitartrate * Allergy Unknown Unknown Verified 11/16/18 12:04 [From Lortab] methylphenidate Allergy Unknown Unknown Verified 11/16/18 12:04 [From Ritalin] morphine AdvReac Unknown Unknown Verified 11/16/18 12:04 Home Medications: Home Medication List Medication Instructions Recorded Confirmed Last Taken Type Cyanocobalamin (Vitamin B-12) 6,000 mcg SL DAILY 06/27/17 10/08/18 02/10/18 07:00 History [Vitamin B-12] Allopurinol [Zyloprim] 200 mg PO DAILY 02/10/18 10/08/18 02/09/18 21:00 History Pantoprazole [Protonix] 40 mg PO DAILY@0700 5 Days #0 02/13/18 10/08/18 Unknown Rx tablet Prednisone 15 mg PO DAILY #30 tab 02/13/18 10/08/18 Unknown Rx Sotalol [Betapace] 120 mg PO BID #60 tab 02/13/18 10/08/18 Unknown Rx Dabrafenib Mesylate [Tafinlar] 75 mg PO BID 10/06/18 10/08/18 Unknown History Furosemide [Lasix] 20 mg PO DAILY 10/06/18 10/08/18 Unknown History Isosorbide Dinitrate 30 mg PO DAILY 10/06/18 10/08/18 Unknown History Nabumetone 750 mg PO BID 10/06/18 10/08/18 Unknown History Potassium Chloride 10 meq PO DAILY 10/06/18 10/08/18 Unknown History Trametinib Dimethyl Sulfoxide 2 mg PO DAILY 10/06/18 10/08/18 Unknown History [Mekinist] Acetaminophen [Tylenol] 1,000 mg PO Q8H tab 10/13/18 Unknown Rx Docusate Sodium [Colace] 200 mg PO QHS cap 10/13/18 Unknown Rx Ferrous Sulfate 325 mg PO DAILY tab 10/13/18 Unknown Rx Folic Acid 1 mg PO DAILY tab 10/13/18 Unknown Rx Oxycodone I.r. [Oxy Ir] 5 mg PO Q3H PRN PRN #30 tab 10/13/18 Unknown Rx - History of Present Illness -Gen Adult Nature of Presenting Problems: Pt is a 78 y/o M presents to the ED with chills and generalized body ache and not feeling well for 2 days. He reports some worsening of SOB with his chronic SOB from the cancer. The says she lost her thermometer and not sure about a fever. Pt denies cough. Location of Pain/Injury: reports: generalized Pain Radiation: reports: no radiation Quality of Pain: reports: aching Severity: reports: moderate Onset/Duration: reports: 2 days ago Timing: reports: still present Context/Activities at Onset: reports: none Modifying Factors: improves with: nothing Associated Symptoms: reports: diarrhea (chronic), fever/chills, loss of appetite , malaise, muscle aches, shortness of breath. denies: back/neck pain, chest pain, cough Similar Symptoms Previously?: No Recently seen or treated by another doctor?: Yes (Cancer ) Review of Systems - Adult - REVIEW OF SYSTEMS - ADULT Constitutional: reports: chills. denies: fever Eyes: reports: no symptoms reported Ears, Nose, Mouth & Throat: reports: no symptoms reported Cardiovascular: denies: chest pain, edema, palpitations Respiratory: reports: shortness of breath. denies: cough, wheezing Gastrointestinal: denies: abdominal pain, nausea, vomiting Genitourinary: reports: no symptoms reported Musculoskeletal: reports: muscle weakness. denies: back pain, neck pain Integumentary: reports: no symptoms reported Neurological: denies: dizziness/vertigo, headache/migraines, numbness, slurred speech Psychiatric: reports: no symptoms reported Endocrine: reports: no symptoms reported Hematologic/Lymphatic: reports: no symptoms reported Allergic/Immunologic: reports: no symptoms reported All Other Systems: Reviewed and Negative Past History - Adult - PAST MEDICAL HISTORY-ADULT Review of Records: reports: Old Records Reviewed, Nursing Assessment Review, Medications Reviewed - SOCIAL HISTORY Smoking: quit greater than 1 year Substance Use: none/never Living Situation: family Physical Exam-General - PHYSICAL EXAM-ADULT Initial Vital Signs Reviewed: Yes - CONSTITUTIONAL General Appearance: appears well, alert, no apparent distress - EYES Eyes: PERRL/EOMI, pink conjunctivae - HEAD, EARS, NOSE, MOUTH & THROAT HENMT: moist mucous membranes, TMs normal, pharyngeal erythema (mild) - NECK Neck: non-tender, full range of motion, supple, normal inspection - RESPIRATORY Respiratory: lungs clear, normal breath sounds, no pleuratic chest pain, no respiratory distress, no accessory muscle use - CARDIOVASCULAR Cardiovascular: normal peripheral pulses, regular rate, rhythm - GASTROINTESTINAL (ABDOMEN) Abdominal Exam: normal bowel sounds, non tender, soft - MUSCULOSKELETAL Back Exam: normal inspection, no CVA tenderness, no vertebral tenderness Extremity: normal range of motion, non-tender, normal gait, pedal edema - SKIN Integumentary: normal turgor, warm/dry. negative: normal color (some cyanosis in finger tips) - NEUROLOGIC Neurologic: grossly normal, no motor/sensory deficits - PSYCHIATRIC Psych/Mental Status: normal mood/affect, normal thought content, normal thought process, oriented x 3 Progress - PLAN OF CARE/RESULTS Progress/Plan/Lab Results: Vital Signs - 8 hr 11/16/18 10:46 Temperature 100.7 F H Pulse Rate 78 Respiratory Rate 20 Blood Pressure 114/70 O2 Sat by Pulse Oximetry 96 Result Diagrams: 11/16/18 12:15 11/16/18 12:15 - EKG 1 Time of EKG reading by physician:: 13:06 EKG Read and Signed by:: Agapito Patel EKG Interpretation (*Must complete 3 of following elements*): Abnormal Rate: 75 Rhythm: Sinus with marked with sinus arrhythmia Comments: Nonspecific ST abnormality - CONSULTS/PCP/HOSPITALIST Notification #1 *Consult/PCP/Hospitalist*: Dr Omer Time Discussed: 14:07 Reason/Comments: Dr Omer came to ER to see pt and wants to admit. Consult Disposition: Will see in ED, Admit Departure - Departure Date of Disposition Decision: 11/16/18 Time of Disposition Decision: 14:07 DIAGNOSIS: Shortness of breath Disposition: ADMITTED INPATIENT Certified Medical Emergency: Emergent Condition: Fair Referrals and Follow-Ups: Vin Steele MD [Primary Care Provider] - - Critical Care Note This patient required my direct & personal management of CC.: No Attestation - Physician/ BRADFORD Attestation Patient care was provided by Advanced Practice Provider:: No The physician spent face to face time with patient:: Yes Advanced Practice Provider documentation review:: Supervising physician onsite and consulted in the evaluation and care of this patient. The physician did have a face to face encounter with the patient. This chart was documented by the indicated scribe, (Masoud Snyder Scribe) and accurately reflects the services I performed and decisions made by me, Agapito Freedman MD, as attested by the provider's signature.
[2018-11-16] MEDS ORDERED: ZOSYN 3.375 GM in NS 50 ML IV SCH (16:15)
[2018-11-16] MEDS: D5 1/2 NS 1,000 ML IV SCH (16:34)
[2018-11-16] MEDS ORDERED: TYLENOL PO PRN (17:19)
--- NOTE | 2018-11-16 18:32 | INFECTIOUS DISEASE CONSULT REP ---
DATE: 11/16/2018 CONCLUSION: The patient is admitted the hospital with dyspnea the exact etiology of which is uncertain to me. RECOMMENDATIONS: I have discontinued Zosyn and started the patient on cefepime and azithromycin. I have ordered a noncontrasted CT scan of the chest tomorrow. DISCUSSION: The patient told me that in the past 2 days he has had dyspnea. He has not had fever and he is not coughing. His laboratory and radiographic studies thus far show a CBC with a white count of 3440, hemoglobin 12.4, platelet count 106,000. Arterial blood gases showed a pH of 7.45, a PO2 of 53, and a pCO2 of 38. Creatinine is 1.3, GFR is 53, alkaline phosphatase is 173. Urinalysis showed no white cells or bacteria. Blood cultures are pending. Swab for influenza was negative. Chest x-ray shows elevation of the left hemidiaphragm and bilateral very small pleural effusions versus pleural thickening. PHYSICAL EXAMINATION: Vital signs: Temperature is 98.1 degrees, pulse 67, respirations 20, blood pressure 157/80. Patient weighs 180 pounds. General: This is a ill-appearing elderly male. He is in no acute distress at this time. Head/eyes/ears/nose/throat: He can hear my spoken words and see near objects. He does not have any white coating on his tongue. Neck: No meningismus. Lungs: Clear to auscultation. Cardiovascular: Heart rate is regular with occasional PACs. Abdomen: Soft and nontender. Neurologic: The patient is awake. He can move his extremities. There is no tremor. His sensation is intact to touch. His memory as regarding his medical history was decreased. HISTORY/REVIEW OF SYSTEMS: Eyes and ears: The patient's vision is okay, but he has decreased hearing. Neck: He does not have any pain in it. Respiratory: See present illness. GI: No nausea or vomiting. The patient has alternating constipation and diarrhea which he says is secondary to the chemotherapy he takes for his melanoma. : No dysuria or flank pain. Bones, joints, muscles: No joint swelling or muscle aching. Neurologic: No seizures. No loss of motor or sensory function. Integument: No rashes. PREVIOUS HOSPITALIZATIONS AND OPERATIONS: The patient has had a fracture of his right hip for which required a barry to be placed in it. He has also had colonoscopy and surgery for his melanoma. MEDICAL DISEASES: Positive for melanoma and premature atrial complexes. INFECTIOUS DISEASE HISTORY: Positive for pneumonia. Negative for UTI. FAMILY HISTORY: Positive for myocardial infarction and cancer. SOCIAL HISTORY: The patient lives in [place]. He is . He has a dog as a pet. He does not smoke cigarettes or abuse drugs. He rarely has a glass of wine. ALLERGIES: He is allergic to Aleve, Lortab, Ritalin and morphine. HOME MEDICATIONS: Include: Zyloprim, vitamin B12, Tafinlar, Colace, Lasix, Isordil, oxycodone, Protonix, prednisone, Xarelto, Betapace. PHYSICAL EXAMINATION: Vital signs: Temperature is 98.1 degrees, pulse 67, respirations 20, blood pressure 157/80. The patient weighs 180 pounds. General: This is a somewhat ill-appearing elderly male. He is in no acute distress. Head, eyes, ears, nose, and throat: He can see near objects. He heard my spoken words. There is no drainage from the nose or ears. He does not have any white patches on his tongue. Neck: No meningismus. Lungs: Clear to auscultation. Cardiovascular: Regular heart rate with PACs. Abdomen: Soft and nontender. Neurologic: The patient is alert. He can move his extremities. There is no tremor. His sensation is intact to touch. His memory as regarding his medical history is decreased. Thank you for the consult. cc: MD Ceasar Glover MD MTDD
[2018-11-16] MEDS: ZITHROMAX PO SCH (20:11)
[2018-11-16] MEDS: MAXIPIME 2 GM in NS 100 ML IV SCH (20:13)
[2018-11-16] MEDS ORDERED: PATIENT'S OWN MED - CHEMO PO SCH (21:00)
[2018-11-16] MEDS: PATIENT'S OWN MED - CHEMO PO SCH (21:31)
[2018-11-16 21:56] LABS: URINE SOURCE CLEAN CATCH
[2018-11-16 21:59] LABS: ALB/GLOB RATIO 1.1; ALBUMIN 3.2 g/dL (3.5-5.0); CALCIUM 8.5 mg/dL (8.8-10.2); CREATININE 1.4 mg/dL (0.7-1.2); INR 1.01; POTASSIUM 4.3 mmol/L (3.5-5.1); PROTIME 14.1 Seconds (11.0-16.0); TOTAL BILIRUBIN 0.86 mg/dL (0.20-1.00); TOTAL PROTEIN 6.1 g/dL (6.3-8.3)
[2018-11-16 22:00] LABS: PTT 42.2 Seconds (22.3-41.8)
[2018-11-16 22:05] LABS: BILIRUBIN URINE NEGATIVE (NEGATIVE); BLOOD URINE SMALL (NEGATIVE); COLOR YELLOW; GLUCOSE URINE NEGATIVE (NEGATIVE); KETONE URINE NEGATIVE (NEGATIVE); LEUKOCYTES URINE NEGATIVE (NEGATIVE); NITRITE URINE NEGATIVE (NEGATIVE); PH URINE 6.5; PROTEIN URINE 30 mg/dL (NEGATIVE); SP GRAVITY URINE 1.022; TURBIDITY URINE CLEAR (CLEAR); UR EPITHELIAL CELLS <10 /HPF (<10); URINE BACTERIA NEGATIVE /HPF; URINE RBC 20-40 /HPF (<10); URINE WBC <10 /HPF (<10); UROBILINOGEN URINE NORMAL (NORMAL)
[2018-11-17 04:07] LABS: BASO# 0.02 X1000 (0.0-0.2); BASO% 0.6 % (0.0-0.8); HEMATOCRIT 34.2 % (42.0-52.0); IMM GRAN# 0.03 X1000 (0.0-0.04); IMM GRAN% 0.8 % (0.0-0.5); LYMPH# 1.64 X1000 (1.2-3.4); LYMPH% 45.9 % (20.5-51.1); MCH 33.3 PG (27-31); MCHC 32.2 g/dL (33-37); MCV 103.6 FL (81-99); MONO# 0.32 X1000 (0.11-0.59); MPV 10.1 FL (7.4-10.4); NEUT# 1.56 X1000 (1.4-6.5); NEUT% 43.7 % (42.2-75.2); PLT 87 X1000 (130-400); RDW 14.9 % (11.5-14.5); WBC 3.57 X1000 (4.8-10.8)
[2018-11-17 04:27] LABS: CALCIUM 8.7 mg/dL (8.8-10.2); CREATININE 1.3 mg/dL (0.7-1.2); POTASSIUM 3.8 mmol/L (3.5-5.1)
--- NOTE | 2018-11-17 08:14 | EKG Report ---
Test Performed on : 11/16/2018 1:06:07 PM Test Reason : weakness Blood Pressure : / mmHG Vent. Rate : 075 BPM Atrial Rate : 075 BPM P-R Int : 144 ms QRS Dur : 084 ms QT Int : 392 ms P-R-T Axes : 086 017 035 degrees QTc Int : 437 ms Sinus rhythm. with marked sinus arrhythmia. Nonspecific ST abnormality Abnormal ECG When compared with ECG of 06-OCT-2018 09:08, (Unconfirmed) premature ventricular complexes. are no longer present premature atrial complexes. are no longer present Unconfirmed Result
[2018-11-17] MEDS: ZITHROMAX PO SCH (08:48)
[2018-11-17] MEDS: MAXIPIME 2 GM in NS 100 ML IV SCH (08:48)
--- NOTE | 2018-11-17 08:52 | Diag Imaging Result Doc PS360 ---
CT THORAX W/O CONTRAST - 11/17/2018 INDICATION: Fever COMPARISON: 11/16/2018, 12/19/2017 FINDINGS: There is no significant adenopathy. There are some shotty mediastinal lymph nodes. There is a left chest port in good position. Heart size is normal with no pericardial effusion. There is moderately extensive scattered calcified coronary artery disease diffusely. Stable significant left hemidiaphragm elevation. There is some mild pulmonary fibrosis similar to prior. There are a couple of nodules mainly in the right lower lobe. These measure up to about 9 mm. Upper abdominal images are unremarkable. There is advanced degeneration throughout the spine. No acute bony lesions. IMPRESSION: Low lung volumes with persistent severe left hemidiaphragm elevation. Mild pulmonary fibrosis. Nonspecific small pulmonary nodules in the right lower lobe. This exam was performed using automated exposure control, adjustment of mA or kV according to patient size, and/or use of iterative reconstruction technique Electronically signed by Romel Valdivia 11/17/2018 8:50 AM
[2018-11-17] MEDS: D5 1/2 NS 1,000 ML IV SCH (09:02)
[2018-11-17] MEDS: PATIENT'S OWN MED - CHEMO PO SCH (13:58)
--- NOTE | 2018-11-17 17:03 | HEMO/ONC CONSULTATION ---
DATE: 11/17/2018 CHIEF COMPLAINT: Metastatic melanoma. HISTORY OF PRESENT ILLNESS: Mr. Ignacio Fontenot Jr, is an 78-year-old male, well known to Dr. Swanson with a history of metastatic melanoma BRAF positive on Tafinlar and Mekinist. The patient has had stable disease. He additionally has brain metastases. MRI of the brain was obtained in July, which revealed no new lesions. The patient also has a diagnosis of ITP. Platelet count has been stable as follows in clinic. Platelet count today is 87,000. The patient has had no bleeding or bruising. Patient is admitted secondary to worsening respiratory distress, and the patient underwent CT of the chest, which revealed low lung volumes as well as left hemidiaphragm elevation, mild pulmonary fibrosis, and right lower lobe small pulmonary nodule. The patient reports that he is feeling better after admission. We are consulted as the patient is well known to us. PAST MEDICAL HISTORY: 1. Metastatic melanoma, BRAF positive. 2. Brain metastases. 3. ITP. 4. Iron-deficiency anemia. 5. Coronary artery disease. 6. Atrial fibrillation. 7. Chronic kidney disease, stage 3. SOCIAL HISTORY: The patient does not use alcohol, tobacco, or illicit drugs. FAMILY HISTORY: Negative for any hematologic or oncologic disease. MEDICATIONS ON ADMISSION: 1. Cyanocobalamin. 2. Isosorbide mononitrate. 3. Lasix. 4. Lidocaine/prilocaine cream. 5. Mekinist. 6. Nabumetone. 7. Pantoprazole. 8. Percocet. 9. Phospha Neutral. 10. Potassium chloride ER. 11. Prednisone. 12. Sotalol. 13. Tafinlar. 14. Xarelto. ALLERGIES: Aleve, Lortab, and Ritalin. REVIEW OF SYSTEMS: A 14 point review of systems was obtained and is negative except as mentioned in HPI. PHYSICAL EXAMINATION: Mr. Fontenot is an 78-year-old male, well known to Dr. Swanson, lying supine in bed in no immediate distress.Vital Signs: Temperature 99.5 degrees, blood pressure 128/55, heart rate 92, respirations 15, O2 saturation 96% on room air. HEENT: Normocephalic, atraumatic. Mucous membranes slightly pale and moist. Sclerae are anicteric. Extraocular movements intact. Neck: Supple. Lungs: Clear to auscultation bilaterally. Chest expansion equal bilaterally. Cardiovascular: S1, S2 are heard without murmur, rub, or gallop. Abdomen: Nondistended. Extremities: No clubbing, cyanosis, or edema. Dermatologic: No rashes, bruises, or lesions. Neurologic: The patient is awake, alert, and oriented x3. Has no focal deficits. DIAGNOSTIC STUDIES: Hemoglobin 11.0, hematocrit 34.2, white blood cell count of 3.57 platelet count is 87,000. A CT of the chest reveals low lung volumes, left hemidiaphragm elevation, mild pulmonary fibrosis, and right lower lobe small pulmonary nodules. ASSESSMENT AND PLAN: 1. Metastatic melanoma, BRAF positive, currently on Tafinlar and Mekinist. We will hold treatment at this time as respiratory distress could be possibly due to immune-mediated pneumonitis. We will discuss with Dr. Bennett the need for IV antibiotics and potentially add high-dose steroids at this time. 2. Brain metastases. MRI in July revealed no new lesions. Stable at this time. 3. Idiopathic thrombocytopenia purpura. Platelet count is currently stable at 87,000. The patient denies bleeding or bruising. Would continue to monitor. 4. Respiratory distress, questionably immune mediated due to current treatment. As per Problem #1. We will follow along with you and make further recommendations pending outcomes. The above reflects the history, exam, assessment, and plan of Dr. Swanson. Dictated by GINO Peguero for Bandar Swanson MD cc: GINO Peguero MD Hugh C. Nabers, MD
--- NOTE | 2018-11-17 18:53 | INFECTIOUS DISEASE PROGRESS NO ---
DATE: 11/17/2018 PRESENT ILLNESS: The patient is febrile. On his CT scan, he has some right lower lobe nodules which could represent an early pneumonia and be causing his fever as well. MEDICATIONS: Currently, the patient is on cefepime and azithromycin. PHYSICAL EXAMINATION: Vital Signs: Temperature was 102 degrees and now is 99.5, pulse 92, respirations 15, blood pressure 128/55. General: This is an obese elderly male. He is in no acute distress. Head, Eyes, Ears, Nose, and Throat: He can hear my spoken words and see near objects. He does not have any white coating on his tongue. Neck: He does not have any pain in his neck when he moves his head. Lungs: Clear to auscultation. Cardiovascular: Heart rate is irregular. Abdomen is soft and nontender. Neurologic: Patient is alert. He can move his extremities. He does not have a tremor. DIAGNOSTIC STUDIES: CT scan shows right lower lobe nodules. Creatinine is 1.3, GFR is 53. CBC shows a white count of 3570, hemoglobin 11, and platelet count of 87,000. ASSESSMENT AND PLAN: Patient could have a right lower lobe pneumonia. He is running fever despite being on antibiotics. I am going to discontinue cefepime and azithromycin and instead place the patient on ceftaroline. PATIENT'S COMORBIDITIES: 1. He is elderly. 2. He does have melanoma. cc: MD Ceasar Glover MD
[2018-11-17] MEDS: TEFLARO 600 MG in NS 250 ML IV SCH (19:25)
[2018-11-18] MEDS: D5 1/2 NS 1,000 ML IV SCH (00:18)
[2018-11-18] MEDS: TEFLARO 600 MG in NS 250 ML IV SCH (05:44)
[2018-11-18 07:32] VITALS: BP 131/65
[2018-11-18] MEDS ORDERED: SOLU-MEDROL IV SCH (11:00)
[2018-11-19] MEDS ORDERED: SOLU-MEDROL IV SCH (15:00)
== END 2018-11-18 11:31 | disposition home or self-care (01) | DRG 194 ==
LOC: ED 10:24 → 4N 14:54
PROVIDERS: ADMIT Surgery; ATTEND Surgery
CPT/HCPCS: 71010; 71045; 71250; 80048; 80053; 81001; 82550; 82805; 83605; 83615; 84484; 85025; 85610; 85730; 87040; 87275; 87276; 87804; 93005; 94761; 99285; A9270; J0692; J0712; J2543; J7050

== ENCOUNTER 2019-03-26 05:37 | Day surgery (SDC) ==
[2019-03-19 11:52] LABS: HEMATOCRIT 37.1 % (42.0-52.0); HEMOGLOBIN 11.7 g/dL (14.0-18.0); MCH 31.5 PG (27-31); MCHC 31.5 g/dL (33-37); MCV 99.7 FL (81-99); MPV 10.2 FL (7.4-10.4); RBC 3.72 XMIL (4.7-6.1); RDW 15.3 % (11.5-14.5); WBC 7.48 X1000 (4.8-10.8)
[2019-03-19 12:06] LABS: INR 1.78; PROTIME 21.1 Seconds (11.0-16.0); PTT 41.6 Seconds (22.3-41.8)
[2019-03-19 12:23] LABS: CALCIUM 9.8 mg/dL (8.8-10.2); CREATININE 1.5 mg/dL (0.7-1.2); POTASSIUM 4.6 mmol/L (3.5-5.1)
--- NOTE | 2019-03-25 14:01 | HISTORY AND PHYSICAL ---
HISTORY OF PRESENT ILLNESS: An 78-year-old male with a longstanding history of BPH and elevated PSA. He has undergone prostate biopsy in 2017 which was benign. At that time, his volume was recorded at 32 mL. He has developed progressively worsening hesitancy and weak stream. He has tried Flomax as well as Myrbetriq and failed them both. He also complains of nocturia 4 to 5. He underwent cystoscopic evaluation on 03/05/2019 which revealed significant bilobar prostatic hypertrophy with obstruction. His prostate is approximately 40 g on exam. He was counseled on observation versus GreenLight transurethral vaporization of the prostate. He desires the latter. PAST MEDICAL HISTORY: BPH, coronary artery disease, nephrolithiasis, erectile dysfunction, gout, squamous cell cancer. PAST SURGICAL HISTORY: Percutaneous coronary intervention, cholecystectomy, colon resection, hernia repair, tonsillectomy, back surgery. HOME MEDICATIONS: Allopurinol, aspirin, vitamin B12, ISDN, Lasix, nabumetone, pantoprazole, potassium acetate, prednisone, sotalol, Tafinlar, Xarelto, trametinib. ALLERGIES: Naproxen and hydrocodone. FAMILY HISTORY: Negative for malignancies. SOCIAL HISTORY: Smokes cigarettes but denies alcohol or illicit drug use. PHYSICAL EXAMINATION: GENERAL: No acute distress. HEENT: Normocephalic, atraumatic. CARDIOVASCULAR: Regular rate and rhythm. PULMONARY: Bilateral breath sounds. ABDOMEN: Nontender, nondistended. : Normal external male genitalia. Meatus is patent. ASSESSMENT/PLAN: An 78-year-old male with significant benign prostatic hypertrophy with symptoms who had failed Flomax and Myrbetriq. He desires definitive intervention. We discussed GreenLight transurethral vaporization of the prostate with the risks of the procedure including, but not limited to, bleeding, infection, injury to the bladder, injury to adjacent structures, long-term complications such as bladder neck contracture and prostatic regrowth, as well as small risk of urinary incontinence, and risk of erectile dysfunction were explained. He voiced understanding and wants to proceed. PLAN: GreenLight transurethral vaporization of the prostate. cc: Chavez Garcia MD
[2019-03-26] MEDS ORDERED: LR 1,000 ML ONE (05:56)
[2019-03-26] MEDS ORDERED: KEFZOL 1 GM/D5W 2 GM/100 ML IVPB ONE (05:56)
[2019-03-26] MEDS ORDERED: SOLU-CORTEF ONE (05:56)
[2019-03-26] MEDS ORDERED: NS 1,000 ML ONE ×2 (06:12→08:31)
[2019-03-26] MEDS ORDERED: DIPRIVAN 1% ONE (06:39)
[2019-03-26] MEDS ORDERED: OFIRMEV 1000 MG/ISOTONIC SOLN 1,000 MG/100 ML BOTTLE ONE (07:23)
[2019-03-26] MEDS ORDERED: DECADRON ONE (07:23)
[2019-03-26] MEDS ORDERED: ZOFRAN ONE (07:23)
[2019-03-26] MEDS ORDERED: XYLOCAINE-MPF 2% ONE (07:23)
[2019-03-26] MEDS ORDERED: LASIX ONE (07:41)
[2019-03-26] MEDS ORDERED: B & O 15A SUPP ONE (07:45)
[2019-03-26] MEDS ORDERED: OXY IR PO PRN ×2 (08:30)
[2019-03-26] MEDS ORDERED: LABETALOL IV PRN (08:30)
[2019-03-26] MEDS ORDERED: DITROPAN PO PRN (08:30)
[2019-03-26] MEDS ORDERED: PHENERGAN PR PRN (08:30)
[2019-03-26] MEDS ORDERED: PHENERGAN PO PRN (08:30)
[2019-03-26] MEDS ORDERED: SODIUM CHLORIDE 0.9% INJ PRN (08:30)
[2019-03-26] MEDS ORDERED: PHENERGAN IV PRN (08:30)
[2019-03-26] MEDS ORDERED: ZOFRAN IV PRN (08:30)
[2019-03-26] MEDS ORDERED: NS 1,000 ML IV SCH (09:00)
[2019-03-26] MEDS ORDERED: TYLENOL PO PRN (09:40)
[2019-03-26] MEDS: COLACE PO SCH ×2 (11:20→20:47)
[2019-03-26] MEDS ORDERED: OFIRMEV 1000 MG/ISOTONIC SOLN 1,000 MG/100 ML BOTTLE IV PRN (14:00)
[2019-03-26 14:32] LABS: BILIRUBIN URINE NEGATIVE (NEGATIVE); BLOOD URINE SMALL (NEGATIVE); COLOR STRAW; GLUCOSE URINE NEGATIVE (NEGATIVE); KETONE URINE NEGATIVE (NEGATIVE); LEUKOCYTES URINE NEGATIVE (NEGATIVE); NITRITE URINE NEGATIVE (NEGATIVE); PH URINE 6.5; PROTEIN URINE NEGATIVE (NEGATIVE); SP GRAVITY URINE 1.006; TURBIDITY URINE CLEAR (CLEAR); URINE SOURCE CATH; UROBILINOGEN URINE NORMAL (NORMAL)
[2019-03-26 14:33] LABS: UR EPITHELIAL CELLS <10 /HPF (<10); URINE BACTERIA NEGATIVE /HPF; URINE RBC <10 /HPF (<10); URINE WBC <10 /HPF (<10)
[2019-03-26] MEDS: ULTRAM PO SCH ×2 (14:34→20:45)
[2019-03-26] MEDS: KEFZOL 1 GM/D5W 1 GM/50 ML IVPB IV SCH ×2 (14:34→23:33)
[2019-03-26] MEDS: RELAFEN PO SCH (20:46)
[2019-03-26] MEDS: PERIDEX MT SCH (20:47)
[2019-03-26] MEDS: BETAPACE PO SCH (20:47)
[2019-03-26] MEDS: PATIENT'S OWN MED PO SCH (20:48)
[2019-03-26] MEDS ORDERED: PERIDEX MT SCH (21:00)
[2019-03-27] MEDS: ULTRAM PO SCH (06:00)
[2019-03-27] MEDS: KEFZOL 1 GM/D5W 1 GM/50 ML IVPB IV SCH (06:01)
[2019-03-27 06:38] LABS: HEMATOCRIT 34.5 % (42.0-52.0); MCH 31.6 PG (27-31); MCHC 31.9 g/dL (33-37); MCV 99.1 FL (81-99); MPV 10.5 FL (7.4-10.4); RBC 3.48 XMIL (4.7-6.1); RDW 15.2 % (11.5-14.5); WBC 4.76 X1000 (4.8-10.8)
[2019-03-27 06:57] LABS: CALCIUM 8.5 mg/dL (8.8-10.2); CREATININE 1.4 mg/dL (0.7-1.2); POTASSIUM 3.7 mmol/L (3.5-5.1)
[2019-03-27] MEDS ORDERED: PROTONIX PO SCH (07:00)
[2019-03-27] MEDS: BETAPACE PO SCH (08:46)
[2019-03-27] MEDS: RELAFEN PO SCH (08:47)
[2019-03-27] MEDS: PERIDEX MT SCH (08:49)
[2019-03-27] MEDS: COLACE PO SCH (08:49)
[2019-03-27] MEDS: PATIENT'S OWN MED PO SCH (08:51)
[2019-03-27] MEDS ORDERED: LASIX PO SCH (09:00)
[2019-03-27] MEDS ORDERED: KLOR-CON PO SCH (09:00)
[2019-03-27] MEDS ORDERED: PATIENT'S OWN MED PO SCH (09:00)
[2019-03-27] MEDS ORDERED: VITAMIN B-12 SL SCH (09:00)
[2019-03-27] MEDS ORDERED: IMDUR PO SCH (09:00)
[2019-03-27] MEDS ORDERED: PREDNISONE PO SCH (09:00)
[2019-03-27 09:24] VITALS: BP 135/78
[2019-03-27] MEDS ORDERED: TYLENOL PO PRN (14:00)
--- NOTE | 2019-03-27 19:17 | OPERATIVE NOTE ---
PROCEDURE DATE: 03/26/2019 SURGEON: Chavez Garcia MD. PREOPERATIVE DIAGNOSIS: Benign prostatic hypertrophy, weak stream, nocturia. POSTOPERATIVE DIAGNOSIS: Benign prostatic hypertrophy, weak stream, nocturia. PROCEDURE: GreenLight transurethral vaporization of prostate. INDICATIONS: An 78-year-old male with a longstanding history of BPH, who has tried medications and failed. He underwent cystourethroscopy in the office which revealed significant bilobar prostatic hypertrophy. He desires definitive intervention with GreenLight laser. He was counseled on the risks. FINDINGS: Bilobar hypertrophy addressed with energy used of 146,789 joules. Power settings ranged from 80 durand to 140 durand. Laser time was 21 minutes and 13 seconds. DESCRIPTION OF PROCEDURE: After obtaining informed consent, patient was brought to the operating room. Preoperative antibiotics and laryngeal mask anesthesia were administered. He was placed in lithotomy position, prepped and draped in a sterile fashion. A 23-Malay resectoscope was introduced and his prostatic urethra and the bladder were examined. He had aforementioned significant bilobar hypertrophy with fairly high riding neck. His bladder showed no evidence of mucosal lesions. He had moderate trabeculations. No sizable diverticula and no stones noted. I was able to see bilateral ureteral orifices. We then introduced the GreenLight laser fiber and I started at 80 durand. I addressed an adenoma at the level of the bladder neck circumferentially, followed by vaporization of the mucosa all the way down to the level of the verumontanum distally. After 2 passes with 80 durand, we increased the energy to 140 durand and the lateral lobes of the prostate were addressed until the capsular fibers were seen. This was again done circumferentially. I decreased the power to 100 durand at the level of the verumontanum and went back up to the bladder neck, and opened up even further with 100 durand. Following that, examination at the level of the verumontanum showed a very nice TUR defect and no evidence of active bleeding. 20 mg of intravenous Lasix were given. The resectoscope was removed and 22- Malay, 3-way Gutierrez catheter was introduced. 30 mL of sterile water were instilled in the balloon. The catheter was placed on light traction with gauze. It was connected to continuous bladder irrigation. The patient was extubated and taken to the PACU for further recovery. ESTIMATED BLOOD LOSS: 30 mL. COMPLICATIONS: None. SPECIMENS: None. DRAINS: 22-Malay, 3-way Gutierrez catheter. DISPOSITION: To PACU and subsequently the floor per patient's family request, given his cardiac history, for observation. cc: Chavez Garcia MD
== END 2019-03-27 10:49 | disposition home or self-care (01) ==
LOC: OR 05:37 → 4N 05:37 → OR 03-27 10:49
PROVIDERS: ATTEND Urology

== ENCOUNTER 2019-07-15 20:19 | Inpatient (IN) ==
[2019-07-15 21:08] LABS: BASO# 0.02 X1000 (0.0-0.2); BASO% 0.4 % (0.0-0.8); EOS# 0.07 X1000 (0.0-0.7); EOS% 1.4 % (0.0-10.0); HEMATOCRIT 39.1 % (42.0-52.0); HEMOGLOBIN 12.3 g/dL (14.0-18.0); LYMPH# 1.43 X1000 (1.2-3.4); LYMPH% 28.6 % (20.5-51.1); MCH 29.7 PG (27-31); MCHC 31.5 g/dL (33-37); MCV 94.4 FL (81-99); MONO# 0.41 X1000 (0.11-0.59); MONO% 8.2 % (1.7-9.3); MPV 10.3 FL (7.4-10.4); NEUT# 3.07 X1000 (1.4-6.5); NEUT% 61.4 % (42.2-75.2); PLT 131 X1000 (130-400); RBC 4.14 XMIL (4.7-6.1); RDW 14.9 % (11.5-14.5)
--- NOTE | 2019-07-15 21:18 | Diag Imaging Result Doc PS360 ---
EXAM: CHEST-PORTABLE INDICATION: confusion TECHNIQUE: One view COMPARISON: 02/07/2019 FINDINGS: There is a stable left chest port. There is a poor inspiratory effort. There is stable elevation of the left hemidiaphragm. Central vasculature is prominent suggesting mild pulmonary venous congestion. There is subsegmental atelectasis at the left lung base. There is no definite pleural fluid collection or pneumothorax. The cardiomediastinal silhouette and central vasculature are grossly unremarkable. IMPRESSION: Low lung volumes, suggestion of mild pulmonary venous congestion, and mild left basilar atelectasis. Electronically signed by Jaun Pang 07/15/2019 9:15 PM
[2019-07-15 21:30] LABS: ALBUMIN 3.6 g/dL (3.5-5.0); CALCIUM 8.8 mg/dL (8.8-10.2); CREATININE 1.5 mg/dL (0.7-1.2); POTASSIUM 4.7 mmol/L (3.5-5.1); TOTAL BILIRUBIN 0.91 mg/dL (0.20-1.00); TOTAL PROTEIN 5.4 g/dL (6.3-8.3)
--- NOTE | 2019-07-15 21:34 | Diag Imaging Result Doc PS360 ---
EXAM: CT HEAD W/WO CONTRAST INDICATION: ams TECHNIQUE: This exam was performed using automated exposure control, adjustment of mA or kV according to patient size, and/or use of iterative reconstruction technique. COMPARISON: MRI brain dated 06/29/[address] head dated 11/17/2017 FINDINGS: There are numerous masses seen throughout the cerebellum and both cerebral hemispheres that are hyperdense on pre and postcontrast with extensive surrounding vasogenic edema. This is consistent with known metastatic melanoma. Precontrast hyperdensity could indicate associated blood products. However, it is a common feature of melanoma to exhibit increased density before contrast even when no blood is present. As compared to the recent MRI, several of these lesions are larger. For reference, there is a mass in the centrum semiovale on the left on image 23 of series 4 measuring up to 1.8 cm in the greatest axial dimension (0.7 cm on the recent MRI). There is no hydrocephalus. IMPRESSION: Interval increase in size of several of the metastatic brain lesions since the recent brain MRI. Electronically signed by Jaun Pang 07/15/2019 9:31 PM
[2019-07-15] MEDS: D5 1/2 NS + KCL 20 MEQ 1,000 ML IV SCH (23:11)
[2019-07-15] MEDS: DECADRON IV SCH (23:11)
[2019-07-15] MEDS ORDERED: HALCION PO PRN (23:54)
[2019-07-15] MEDS ORDERED: AMBIEN PO PRN (23:54)
[2019-07-16] MEDS ORDERED: AMBIEN PO PRN (00:02)
--- NOTE | 2019-07-16 04:00 | EKG Report ---
Test Performed on : 07/15/2019 8:37:56 PM Test Reason : ams Blood Pressure : / mmHG Vent. Rate : 063 BPM Atrial Rate : 063 BPM P-R Int : 142 ms QRS Dur : 080 ms QT Int : 404 ms P-R-T Axes : 068 023 013 degrees QTc Int : 413 ms Sinus rhythm. with marked sinus arrhythmia. Nonspecific T wave abnormality Abnormal ECG When compared with ECG of 16-NOV-2018 13:06, No significant change was found Unconfirmed Result
[2019-07-16] MEDS: DECADRON IV SCH ×4 (04:24→18:48)
[2019-07-16] MEDS: THORAZINE PO SCH ×3 (07:59→18:08)
[2019-07-16] MEDS ORDERED: ATIVAN IV PRN ×2 (11:34→14:41)
[2019-07-16] MEDS: D5 1/2 NS + KCL 20 MEQ 1,000 ML IV SCH ×2 (11:44→18:08)
[2019-07-16] MEDS ORDERED: TYLENOL PR PRN (14:54)
[2019-07-16] MEDS ORDERED: ZOFRAN IV PRN (14:55)
[2019-07-16] MEDS: MORPHINE IV PRN ×2 (15:33→20:22)
[2019-07-16] MEDS: ATIVAN IV PRN ×2 (15:33→20:22)
[2019-07-16] MEDS: TRANSDERM-SCOP TD SCH (15:42)
[2019-07-17] MEDS: MORPHINE IV PRN ×5 (00:05→21:25)
[2019-07-17] MEDS: ATIVAN IV PRN ×5 (00:07→21:25)
[2019-07-17] MEDS: DECADRON IV SCH ×4 (00:32→18:18)
[2019-07-17] MEDS: D5 1/2 NS + KCL 20 MEQ 1,000 ML IV SCH (17:07)
[2019-07-18] MEDS: ATIVAN IV PRN ×6 (01:43→23:14)
[2019-07-18] MEDS: MORPHINE IV PRN ×6 (01:43→23:14)
[2019-07-18] MEDS: DECADRON IV SCH ×5 (01:47→23:36)
[2019-07-18] MEDS: ATROPINE 1 % OPHTH SOLN SL PRN ×2 (20:00→23:17)
[2019-07-19] MEDS: MORPHINE IV PRN ×7 (02:27→21:44)
[2019-07-19] MEDS: ATIVAN IV PRN ×7 (02:27→21:44)
[2019-07-19] MEDS: ATROPINE 1 % OPHTH SOLN SL PRN ×5 (02:30→21:45)
[2019-07-19] MEDS: DECADRON IV SCH ×2 (06:30→11:59)
[2019-07-19] MEDS: D5 1/2 NS + KCL 20 MEQ 1,000 ML IV SCH ×2 (12:02→18:07)
[2019-07-19] MEDS: TRANSDERM-SCOP TD SCH ×2 (12:02→15:09)
[2019-07-20] MEDS: MORPHINE IV PRN ×6 (00:49→21:23)
[2019-07-20] MEDS: ATIVAN IV PRN ×6 (00:49→21:23)
[2019-07-20] MEDS: DECADRON IV SCH ×5 (00:50→21:22)
[2019-07-20] MEDS: ATROPINE 1 % OPHTH SOLN SL PRN ×2 (04:05→06:37)
[2019-07-20] MEDS: D5 1/2 NS + KCL 20 MEQ 1,000 ML IV SCH (16:15)
[2019-07-21] MEDS: DECADRON IV SCH (03:52)
[2019-07-21] MEDS: MORPHINE IV PRN (03:52)
[2019-07-21] MEDS: ATIVAN IV PRN (03:52)
[2019-07-21 06:50] VITALS: BP 106/60
--- NOTE | 2019-08-11 12:46 | DISCHARGE SUMMARY ---
ADMISSION DATE: 07/17/2019 DISCHARGE DATE: 07/21/2019 DIAGNOSES: 1. 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 2. Coma. HOSPITAL COURSE: The patient is an 79-year-old, white male known to me for many years who initially presented with skin lesions on his lower extremities. Over the years, I have taken two melanomas off of him, as well as a squamous lesion. He has had a large groin metastasis, that was about 5 or 6 cm, removed as well. He has been treated by Dr. aBndar Swanson as well as physicians in [facility] and [place]. Over the last several months, he has had radiofrequency ablation for multiple brain metastases. However, on the most recent study, there were more and bigger metastases. He presented to the emergency room with severe confusion and combativeness. A CT repeated showed increased size in edema and the tumors over a 2 week period from the previous PET scan. He was admitted as a No Code, and given Ativan and morphine. He did show some combative behavior but then lapsed into a coma. He never regained consciousness. Did not eat anything. He just had intravenous fluids maintained and his medications. He subsequently on 07/21/2019. There will be no post. He was released to the home. cc: Ceasar Martell MD
== END 2019-07-21 05:30 | disposition expired | DRG 54 ==
LOC: 3N 20:19 → ED 20:19
PROVIDERS: ADMIT Surgery; ATTEND Surgery